=== PATIENT | male | born 1995 | race Caucasian/White ===

== ENCOUNTER 2016-12-06 21:39 | Emergency (ER) | payer OTHER ==
[~2016-12-06] VITALS: Ht 175.3 cm; Wt 64.2 kg
[2016-12-06 21:43] VITALS: BP 123/84
[2016-12-06] MEDS ORDERED: LIDOCAINE 1%, 20ML ONE (22:24)
[2016-12-06] MEDS ORDERED: LIDOCAINE 1%, 20ML INFIL ONE (22:30)
[2016-12-06] MEDS ORDERED: DIPH,PERTUSS(ACELL),TET VAC/PF 0.5 ML IM-VACC ONE ×2 (22:30→22:50)
[2016-12-06] MEDS ORDERED: BACITRACIN ZINC OINT 500U/GM, 0.9 GM ONE (23:56)
== END 2016-12-07 00:07 | disposition home or self-care (01) ==
LOC: ED 23:59
DX: S61.311A Laceration without foreign body of left index finger with damage to nail, initial encounter (principal); X58.XXXA Exposure to other specified factors, initial encounter; Y93.89 Activity, other specified; Y92.89 Other specified places as the place of occurrence of the external cause; Y99.8 Other external cause status
CPT/HCPCS: 12041; 90471; 90715